=== PATIENT | female | born 1985 | race Caucasian/White ===

== ENCOUNTER 2019-07-29 13:47 | Outpatient (CLI) | payer OTHER, SELFPAY ==
--- NOTE | ~2019-07-29 | US_ITS ---
EXAMINATION: US breast BI complete HISTORY: Bilateral mastodynia TECHNIQUE: Complete bilateral breast ultrasound is performed. COMPARISON: 05/04/2018 FINDINGS: The breast tissue composition is heterogeneous background echotexture. No suspicious cystic or solid mass is identified in either breast. There is no sonographic correlate for the patient's bi lateral breast pain. IMPRESSION: No specific sonographic correlate is identified for the patient's breast pain. Further evaluation at this time should be based on clinical assessment. Continued follow-up physical examination is recomme nded. BI-RADS Category 1: Negative Reviewed, dictated and finalized at location A. K AND W[employer]OUNTER IMPRESSION: No specific sonographic correlate is identified for the patient's breast pain. Further evaluation at this time should be based on clinical assessment. Continu ed follow-up physical examination is recommended. BI-RADS Category 1: Negative
== END 2019-07-29 13:48 | disposition home or self-care (01) ==
LOC: ANHIMG 14:04
PROVIDERS: Visit Provider Nurse Practitioner Obstetrics & Gynecology
DX: N64.4 Mastodynia (principal)
CPT/HCPCS: 76641